=== PATIENT | female | born 1960 | race Asian ===

== ENCOUNTER 2018-08-04 08:25 | Observation (INO) | payer MEDICAID, OTHER ==
[~2018-08-04] VITALS: Ht 160 cm; Wt 48.9 kg
--- NOTE | 2018-08-04 09:06 | NUR ---
PT TO RM 18 AND ASSUMED CARE. PLACED ON MONITOR AND ASSESSMENT DONE NOTED. AWAITING PROVIDER EVAL
[2018-08-04] MEDS ORDERED: SODIUM CHLORIDE FLUSH 10ML SYR IVF ONE (09:30)
[2018-08-04] MEDS ORDERED: NITROGLYCERIN OINT 2%, 1GM TP ONE ×2 (09:30→09:51)
[2018-08-04] MEDS ORDERED: ASPIRIN 81 MG TABLET CHEW PO ONE (09:30)
[2018-08-04 09:34] LABS: BASOPHILS # (AUTO) 0.07 x10^3/uL (0-0.1); BASOPHILS % (AUTO) 2 % (0-1); EOSINOPHILS # (AUTO) 0.03 x10^3/uL (0-0.4); EOSINOPHILS % (AUTO) 1 % (1-7); LYMPHOCYTES # (AUTO) 0.99 x10^3/uL (1-3.4); LYMPHOCYTES % (AUTO) 22 % (22-44); MD NO; MEAN CORPUSCULAR HEMOGLOBIN 29.5 pg (27.0-34.8); MEAN CORPUSCULAR HGB CONC 33.4 g/dL (32.4-35.8); MEAN CORPUSCULAR VOLUME 88.4 fL (80-100); MEAN PLATELET VOLUME 6.5 fL (7.4-10.4); MONOCYTES # (AUTO) 0.26 x10^3/uL (0.2-0.8); MONOCYTES % (AUTO) 6 % (2-9); NEUTROPHILS # (AUTO) 3.08 x10^3/uL (1.8-6.8); NEUTROPHILS % (AUTO) 70 % (42-75); PLATELET COUNT 409 x10^3/uL (130-400); RED BLOOD COUNT 4.39 x10^6/uL (3.82-5.3); RED CELL DISTRIBUTION WIDTH 13.7 % (9.6-15.2)
[2018-08-04 09:43] LABS: ALBUMIN 3.8 g/dL (3.4-5.0); ANION GAP 8 mmol/L (5-15); CALCIUM 8.8 mg/dL (8.5-10.1); CHLORIDE 112 mmol/L (98-107); CREATININE 0.97 mg/dL (0.55-1.02)
[2018-08-04 09:47] LABS: TROPONIN I < 0.015 ng/mL (0.000-0.045)
[2018-08-04] MEDS ORDERED: ASPIRIN 81 MG TABLET CHEW ONE ×2 (09:51→09:52)
--- NOTE | 2018-08-04 10:08 | NUR ---
PT REMAINS ON MONITOR. MEDICATED PER ORDERS. PT IN NO DISTRESS
[2018-08-04] MEDS ORDERED: NITROGLYCERIN 0.4 MG/SPRAY SL PRN (11:30)
[2018-08-04] MEDS ORDERED: morphine SULFATE 10 MG/ML, 1ML IV PRN (11:30)
[2018-08-04] MEDS ORDERED: NITROGLYCERIN 0.4 MG BOTTLE (25 TABS) SL PRN (11:30)
[2018-08-04] MEDS ORDERED: ACETAMINOPHEN 325 MG TABLET PO PRN (11:30)
[2018-08-04] MEDS: SODIUM CHLORIDE FLUSH 10ML SYR IVF SCH ×2 (11:30→21:00)
[2018-08-04 11:31] VITALS: BP 128/84
[2018-08-04 11:41] LABS: CHOL/HDL RATIO 2.2
[2018-08-04] MEDS: ENOXAPARIN 40 MG/0.4 ML SQ SCH (12:59)
[2018-08-04 13:55] VITALS: BP 93/56
[2018-08-04 16:14] LABS: TROPONIN I < 0.015 ng/mL (0.000-0.045)
[2018-08-04 21:13] VITALS: BP 99/61
[2018-08-04 22:00] LABS: TROPONIN I < 0.015 ng/mL (0.000-0.045)
[2018-08-04] MEDS ORDERED: D5%-0.45NACL+KCL 20MEQ 1,000 ML IV SCH (22:00)
[2018-08-05 03:17] VITALS: BP 114/63
[2018-08-05 04:34] LABS: CHOL/HDL RATIO 2.1; LDL/HDL RATIO 0.9 (0.5-3.0)
[2018-08-05 04:37] LABS: TROPONIN I < 0.015 ng/mL (0.000-0.045)
[2018-08-05] MEDS ORDERED: ASPIRIN 325 MG TABLET EC PO SCH (06:00)
[2018-08-05 07:19] VITALS: BP 108/70
[2018-08-05] MEDS ORDERED: ALBUTEROL/IPRATROPIUM 2.5MG/0.5MG, 3 ML ONE (07:39)
[2018-08-05] MEDS ORDERED: ALBUTEROL/IPRATROPIUM 2.5MG/0.5MG, 3 ML NPPB PRN (08:00)
[2018-08-05] MEDS ORDERED: AZITHROMYCIN 500 MG in SODIUM CHLORIDE 0.9% 250 ML IV SCH (08:00)
[2018-08-05] MEDS ORDERED: REGADENOSON 0.4 MG/5 ML SYRINGE ONE (08:05)
[2018-08-05] MEDS ORDERED: SENNA/DOCUSATE TABLET PO SCH (09:00)
[2018-08-05 13:11] VITALS: BP 103/63
[2018-08-05] MEDS: ENOXAPARIN 40 MG/0.4 ML SQ SCH (13:11)
[2018-08-05] MEDS: SODIUM CHLORIDE FLUSH 10ML SYR IVF SCH (13:11)
[2018-08-05] MEDS ORDERED: AZIT500T5 PO (13:55)
[2018-08-05] MEDS ORDERED: TIOT18CA INH (13:57)
[2018-08-05] MEDS ORDERED: HYDR25TA11 PO (13:58)
[2018-08-05] MEDS ORDERED: ALBU8.5H8 INH (14:01)
== END 2018-08-05 16:00 | disposition home or self-care (01) ==
LOC: ED 10:22 → 5SO 11:18 → ED 11:26 → 5SO 11:27 → INTOOBSV 11:27 → 5SO 15:36 → DCLOUNGE 08-05 15:40
PROVIDERS: ADMIT Hospitalist; ATTEND Hospitalist
DX: R07.89 Other chest pain (principal); R06.09 Other forms of dyspnea; F41.1 Generalized anxiety disorder; F17.210 Nicotine dependence, cigarettes, uncomplicated; M06.9 Rheumatoid arthritis, unspecified
CPT/HCPCS: 36415; 71045; 71046; 78452; 80048; 80061; 82040; 83880; 84145; 84484; 85025; 90471; 90656; 93005; 93017; 93306; 94640; 96365; 96372; 99284; A9502; G0378; J0456; J1650; J2785; J3480; J7050; J7620; 99285

== ENCOUNTER 2019-08-03 13:38 | Emergency (ER) | payer MEDICAID, OTHER ==
[~2019-08-03] VITALS: Ht 160 cm; Wt 74.0 kg
[~2019-08-03 13:38] MED LIST: ALBU8.5H8 INH; AZIT500T10 PO; HYDR-826 PO; TIOT18CA INH
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
--- NOTE | 2019-08-03 13:58 | NUR ---
CUSTOMER RESOLUTION SPECIALIST FLOYD AT BEDSIDE FOR EXAM.
--- NOTE | 2019-08-03 14:22 | NUR ---
ATTEMPTED TO DO MED REC, PT STATES SHE DOES NOT REMEMBER ANY OF THE NAMES OF THE MEDS SHE USED TO TAKE. [facility]A SENT. MD AT BEDSIDE. 2 BAGS OF BELONGINGS PLACED IN LOCKER AND LOCKED. DIET TRAY ORDERED.
[2019-08-03] MEDS ORDERED: HYDROXYZINE PAMOATE 50MG CAP PO PRN (14:30)
[2019-08-03 14:41] LABS: MICROSCOPIC INDICATED
[2019-08-03 14:49] LABS: AMPHETAMINE SCREEN, URINE Negative (Negative); BARBITURATE SCREEN, URINE Negative (Negative); BENZODIAZEPINE SCREEN, URINE Negative (Negative); CANNABINOID SCREEN, URINE Positive (Negative); COCAINE SCREEN, URINE Negative (Negative); CULTURE INDICATED? YES; METHADONE SCREEN, URINE Negative (Negative); OPIATE SCREEN, URINE Negative (Negative)
[2019-08-03 14:54] LABS: BASOPHILS # (AUTO) 0.04 x10^3/uL (0-0.1); BASOPHILS % (AUTO) 1 % (0-1); EOSINOPHILS # (AUTO) 0.03 x10^3/uL (0-0.4); EOSINOPHILS % (AUTO) 1 % (1-7); LYMPHOCYTES # (AUTO) 1.55 x10^3/uL (1-3.4); LYMPHOCYTES % (AUTO) 28 % (22-44); MD NO; MEAN CORPUSCULAR HEMOGLOBIN 28.5 pg (27.0-34.8); MEAN CORPUSCULAR HGB CONC 32.6 g/dL (32.4-35.8); MEAN CORPUSCULAR VOLUME 87.3 fL (80-100); MEAN PLATELET VOLUME 6.3 fL (7.4-10.4); MONOCYTES # (AUTO) 0.35 x10^3/uL (0.2-0.8); MONOCYTES % (AUTO) 6 % (2-9); NEUTROPHILS # (AUTO) 3.54 x10^3/uL (1.8-6.8); NEUTROPHILS % (AUTO) 64 % (42-75); PLATELET COUNT 337 x10^3/uL (130-400); RED BLOOD COUNT 4.47 x10^6/uL (3.82-5.3); RED CELL DISTRIBUTION WIDTH 14.3 % (9.6-15.2)
[2019-08-03] MEDS ORDERED: hydrOXyzine 50MG TABLET ONE (14:55)
[2019-08-03] MEDS ORDERED: FLUOXETINE 10 MG CAP ONE (14:56)
[2019-08-03] MEDS: FLUOXETINE 10 MG CAP PO SCH (14:58)
--- NOTE | 2019-08-03 14:58 | NUR ---
PT MEDICATED PER ORDERS.
[2019-08-03 15:05] LABS: ALBUMIN 3.5 g/dL (3.4-5.0); ANION GAP 6 mmol/L (5-15); CALCIUM 8.4 mg/dL (8.5-10.1); CHLORIDE 116 mmol/L (98-107); SALICYLATE LEVEL 4.6 mg/dL (2.8-20.0)
[2019-08-03 15:09] LABS: ALANINE AMINOTRANSFERASE 17 U/L (12-78); ALKALINE PHOSPHATASE 70 U/L (45-117); BILIRUBIN,TOTAL 0.4 mg/dL (0.2-1.0); CREATININE 0.85 mg/dL (0.55-1.02); TOTAL PROTEIN 6.9 g/dL (6.4-8.2)
--- NOTE | 2019-08-03 16:07 | NUR ---
BREAK RN: PT SLEEPING RESP EVEN AND UNLABORED.
--- NOTE | 2019-08-03 17:08 | NUR ---
PT RESTING ON GURNEY, SITTER IN HALLWAY IN DIRECT LINE OF SIGHT.
--- NOTE | 2019-08-03 17:24 | NUR ---
casey with [facility] call to say they are not contracted with pt insurance.
--- NOTE | 2019-08-03 17:36 | NUR ---
PACKET FAXED TO [facility], [facility], [facility], [facility]
--- NOTE | 2019-08-03 17:51 | NUR ---
Nissa with [facility] called and has received packet. they are waiting for authorization from pt insurance.
--- NOTE | 2019-08-03 18:15 | NUR ---
PT RESTING ON GURNEY, SITTER IN HALLWAY IN DIRECT LINE OF SIGHT.
--- NOTE | 2019-08-03 19:08 | NUR ---
PT RESTING ON GURNEY, SITTER IN HALLWAY IN DIRECT LINE OF SIGHT. DINNER TRAY GIVEN TO PT.
--- NOTE | 2019-08-03 20:00 | NUR ---
PT RESTING ON GURNEY, SITTER IN HALLWAY IN DIRECT LINE OF SIGHT.
--- NOTE | 2019-08-03 20:46 | NUR ---
REPORT GIVEN TO RANDY TORRES. CARE TRANSFERRED. PT ASLEEP ON [place] WITH SITTER IN HALLWAY FOR CLOSE OBS.
--- NOTE | 2019-08-03 23:00 | NUR ---
PT RESTING WITH EYES CLOSED. RESPIRATIONS EVEN AND NONLABORED. SITTER IN HALLWAY WITHIN LINE OF SIGHT.
--- NOTE | 2019-08-04 02:05 | NUR ---
PT RESTING WITH EYES CLOSED. RESPIRATIONS EVEN AND NONLABORED. SITTER IN HALLWAY WITHIN LINE OF SIGHT.
--- NOTE | 2019-08-04 05:16 | NUR ---
PT RESTING WITH EYES CLOSED. RESPIRATIONS EVEN AND NONLABORED. SITTER IN HALLWAY WITHIN LINE OF SIGHT.
--- NOTE | 2019-08-04 06:08 | NUR ---
PT PLACED ON HOSPITAL BED. PT QUIET AND WOULD NOT MAKE EYE CONTACT WHEN ANSWERING QUESIONS. PT DENIES FURTHER NEEDS AT THIS TIME.
--- NOTE | 2019-08-04 06:44 | NUR ---
MORNING MEAL TRAY ORDERED.
--- NOTE | 2019-08-04 06:53 | NUR ---
TP RN: SPOKE WITH FIDELINA FROM [facility], PER HIM THEY ARE WAITING TO SPEAK WITH [facility] PRIOR TO BEING ABLE TO ACCEPT PT. HE REPORTS THEY WILL BE FOLLOWING UP WITH THIS IN THE AM TODAY.
--- NOTE | 2019-08-04 07:00 | NUR ---
RECIEVED REPORT FROM MELISSA PADILLA. PT RESTING IN BED WITH EYES CLOSED. SITTER AT DOOR. WILL CONTINUE TO MONITOR.
--- NOTE | 2019-08-04 08:33 | NUR ---
PT GIVEN MEAL TRAY. PT RESTING IN BED WIH EYES CLOSED. NO STATED NEEDS FROM PT. SITTER OUTSIDE DOOR. WILL CONTINUE TO MONITOR.
--- NOTE | 2019-08-04 09:39 | NUR ---
PT CONTINUES TO REST IN BED WITH EYES CLOSED. SITTER AT DOOR.
--- NOTE | 2019-08-04 10:03 | NUR ---
PT CONINUES TO REST CALMLY IN BED WITH EYES CLOSED. NO STATED NEEDS. SITTER AT DOOR.
[2019-08-04] MEDS ORDERED: FLUOXETINE 10 MG CAP ONE (10:52)
[2019-08-04] MEDS: FLUOXETINE 10 MG CAP PO SCH (10:55)
[2019-08-04 11:00] VITALS: BP 126/77
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
--- NOTE | 2019-08-04 12:02 | NUR ---
PT RESTING IN BED WITH EYES CLOSED. NO STATED NEEDS AT THIS TIME. SITTER AT DOOR.
--- NOTE | 2019-08-04 12:51 | NUR ---
REPORT TO SADI PADILLA FOR [facility]. SADI STATED THEY WILL CALL WHEN READY FOR PT. THIS PASSED ON TO ADI PADILLA.
== END 2019-08-04 15:21 | disposition other institution (70) ==
LOC: ED 16:42
DX: R45.851 Suicidal ideations (principal); F32.9 Major depressive disorder, single episode, unspecified; F41.1 Generalized anxiety disorder; M06.9 Rheumatoid arthritis, unspecified
CPT/HCPCS: 36415; 80053; 80307; 81001; 85025; 87086; 99284

== ENCOUNTER 2019-08-04 12:00 | Inpatient (IN) | payer MEDICAID, OTHER ==
[~2019-08-04] VITALS: Ht 160 cm; Wt 49.7 kg
[2019-08-04] MEDS ORDERED: BISACODYL 10 MG SUPP PR PRN (13:00)
[2019-08-04] MEDS ORDERED: DOCUSATE 100 MG CAPSULE PO PRN (13:00)
[2019-08-04] MEDS ORDERED: POLYETHYLENE GLYCOL 17 GM PACKET PO PRN (13:00)
[2019-08-04 14:00] VITALS: BP 127/80
[2019-08-04] MEDS ORDERED: PLEASE ENTER HEIGHT AND WEIGHT MC SCH (14:00)
[2019-08-04 15:31] LABS: CHOL/HDL RATIO 1.9; FREE T4 (FREE THYROXINE) 1.53 ng/dL (0.76-1.46); LDL/HDL RATIO 0.8 (0.5-3.0)
[2019-08-04] MEDS ORDERED: POTASSIUM CHLORIDE 20 MEQ TAB.ER.PRT PO ONE ×2 (17:00)
[2019-08-04] MEDS ORDERED: NICOTINE 7 MG/24 HR PATCH.TD24 TD SCH (17:30)
[2019-08-04 19:00] VITALS: BP 109/65
[2019-08-04] MEDS: ALBUTEROL/IPRATROPIUM 2.5MG/0.5MG, 3 ML NPPB SCH (20:30)
[2019-08-04] MEDS: BUDESONIDE 0.5 MG/2 ML INHA NPPB SCH (20:30)
[2019-08-04] MEDS: SULFAMETH./TRIMETHOPRIM DS 800MG/160MG TABLET PO SCH (20:40)
[2019-08-04 23:50] VITALS: BP 109/65
[2019-08-05] MEDS: ALBUTEROL/IPRATROPIUM 2.5MG/0.5MG, 3 ML NPPB SCH ×4 (03:30→21:00)
[2019-08-05 07:27] VITALS: BP 110/64
[2019-08-05] MEDS: SULFAMETH./TRIMETHOPRIM DS 800MG/160MG TABLET PO SCH ×2 (09:04→20:30)
[2019-08-05] MEDS: BUDESONIDE 0.5 MG/2 ML INHA NPPB SCH ×2 (11:20→21:00)
[2019-08-05] MEDS ORDERED: ONDANSETRON ODT 4 MG PO PRN (13:00)
[2019-08-05 14:16] LABS: ALBUMIN 3.5 g/dL (3.4-5.0); ANION GAP 8 mmol/L (5-15); CALCIUM 8.3 mg/dL (8.5-10.1); CHLORIDE 111 mmol/L (98-107)
[2019-08-05 14:19] LABS: ALANINE AMINOTRANSFERASE 14 U/L (12-78); ALKALINE PHOSPHATASE 69 U/L (45-117); BILIRUBIN,TOTAL 0.4 mg/dL (0.2-1.0); CREATININE 1.08 mg/dL (0.55-1.02); TOTAL PROTEIN 6.7 g/dL (6.4-8.2)
[2019-08-05] MEDS: NICOTINE 14MG/24 HR PATCH.TD24 TD SCH (15:53)
[2019-08-05 19:47] VITALS: BP 93/60
[2019-08-06] MEDS: ALBUTEROL/IPRATROPIUM 2.5MG/0.5MG, 3 ML NPPB SCH ×4 (02:28→21:00)
[2019-08-06 07:40] VITALS: BP 114/76
[2019-08-06] MEDS: ACETAMINOPHEN 325 MG TABLET PO PRN ×2 (08:15→20:18)
[2019-08-06] MEDS: DULOXETINE 30 MG CAPSULE.DR PO SCH (08:15)
[2019-08-06] MEDS: SULFAMETH./TRIMETHOPRIM DS 800MG/160MG TABLET PO SCH ×2 (08:15→20:17)
[2019-08-06] MEDS: BUDESONIDE 0.5 MG/2 ML INHA NPPB SCH ×2 (09:50→21:00)
[2019-08-06] MEDS: NICOTINE 14MG/24 HR PATCH.TD24 TD SCH (15:49)
[2019-08-06 19:42] VITALS: BP 113/73
[2019-08-07] MEDS: ALBUTEROL/IPRATROPIUM 2.5MG/0.5MG, 3 ML NPPB SCH ×4 (02:58→20:07)
[2019-08-07 07:41] VITALS: BP 107/57
[2019-08-07] MEDS: SULFAMETH./TRIMETHOPRIM DS 800MG/160MG TABLET PO SCH (08:24)
[2019-08-07] MEDS: DULOXETINE 30 MG CAPSULE.DR PO SCH (08:25)
[2019-08-07] MEDS: BUDESONIDE 0.5 MG/2 ML INHA NPPB SCH ×2 (09:00→21:00)
[2019-08-07] MEDS: NICOTINE 14MG/24 HR PATCH.TD24 TD SCH (15:14)
[2019-08-07 19:14] VITALS: BP 108/70
[2019-08-08] MEDS: ALBUTEROL/IPRATROPIUM 2.5MG/0.5MG, 3 ML NPPB SCH ×4 (02:06→21:00)
[2019-08-08 07:38] VITALS: BP 110/70
[2019-08-08] MEDS: BUDESONIDE 0.5 MG/2 ML INHA NPPB SCH ×2 (08:44→21:00)
[2019-08-08] MEDS ORDERED: DULO30CA2 PO (11:52)
[2019-08-08] MEDS ORDERED: NICO-486 TD (11:52)
[2019-08-08] MEDS: ACETAMINOPHEN 325 MG TABLET PO PRN (14:15)
[2019-08-08] MEDS: NICOTINE 14MG/24 HR PATCH.TD24 TD SCH (17:02)
[2019-08-08 19:28] VITALS: BP 96/59
[2019-08-08] MEDS: DULOXETINE 30 MG CAPSULE.DR PO SCH (20:28)
[2019-08-09] MEDS: ALBUTEROL/IPRATROPIUM 2.5MG/0.5MG, 3 ML NPPB SCH ×2 (03:00→09:00)
[2019-08-09 07:24] VITALS: BP 111/72
[2019-08-09] MEDS: BUDESONIDE 0.5 MG/2 ML INHA NPPB SCH (09:00)
== END 2019-08-09 09:55 | disposition home or self-care (01) | DRG 751 ==
LOC: 3E 13:21
PROVIDERS: ADMIT Psychiatry & Neurology Psychosomatic Medicine; ATTEND Psychiatry & Neurology Psychosomatic Medicine
DX: F33.2 Major depressive disorder, recurrent severe without psychotic features (principal); R45.851 Suicidal ideations; J44.9 Chronic obstructive pulmonary disease, unspecified; M06.9 Rheumatoid arthritis, unspecified; F12.20 Cannabis dependence, uncomplicated; N39.0 Urinary tract infection, site not specified; F17.210 Nicotine dependence, cigarettes, uncomplicated; Z88.0 Allergy status to penicillin; Z88.5 Allergy status to narcotic agent
CPT/HCPCS: 36415; 80053; 80061; 84439; 84443; 93005; 94640; J7620; J7626; Q0162; 92523-GN